=== PATIENT | female | born 2000 | race Two or more races ===

== ENCOUNTER 2024-03-04 00:35 | Emergency (ER) | payer MEDICAID ==
[~2024-03-04] VITALS: Ht 149.9 cm; Wt 83.6 kg
[2024-03-04 01:27] VITALS: TEMP 98.4
[2024-03-04] MEDS: ACETAMINOPHEN 500 MG TABLET PO ONE (01:31)
[2024-03-04] MEDS: IBUPROFEN 600 MG TABLET PO ONE (01:32)
[2024-03-04] MEDS: METHOCARBAMOL 500 MG TABLET PO ONE (01:32)
[2024-03-04] MEDS ORDERED: RISP-31 PO (01:37)
[2024-03-04] MEDS ORDERED: PRAZ5CAP2 PO (01:39)
[2024-03-04] MEDS ORDERED: CITA10TA99 PO (01:39)
[2024-03-04] MEDS ORDERED: HYDR25TA84 PO (01:39)
[2024-03-04] MEDS ORDERED: HYDR-4062 PO (02:56)
[2024-03-04] MEDS ORDERED: IBUP-1554 PO (02:56)
[2024-03-04] MEDS ORDERED: METH-659 PO (02:56)
[2024-03-04 03:07] VITALS: BP 125/80; PULSE 85; RESP 18; O2SAT 95
[2024-03-04] MEDS: HYDROCODONE/ACETAMINOPHEN 5-325 MG TABLET PO ONE (03:13)
== END 2024-03-04 03:24 | disposition home or self-care (01) ==
LOC: EMS 00:35
DX: S39.012A Strain of muscle, fascia and tendon of lower back, initial encounter (principal); M54.6 Pain in thoracic spine; F25.9 Schizoaffective disorder, unspecified; V89.2XXA Person injured in unspecified motor-vehicle accident, traffic, initial encounter; Y93.89 Activity, other specified; Y92.89 Other specified places as the place of occurrence of the external cause; Y99.8 Other external cause status
CPT/HCPCS: 72070; 72100; 84703; 99284; Z7502; Z7610